=== PATIENT | male | born 1970 | race Two or more races ===

== ENCOUNTER 2023-03-10 18:42 | Inpatient (IN) | payer OTHER ==
[~2023-03-10] VITALS: Ht 172.7 cm; Wt 63.5 kg
[2023-03-11] MEDS ORDERED: NEOMYCIN-BACITRACIN-POLYM UNITDOSE PKG TOP OINT TOP ONE (00:15)
[2023-03-11] MEDS ORDERED: cefTRIAXone SOD 1,000 MG VL IM ONE (00:15)
[2023-03-11] MEDS ORDERED: HYDROcodone-ACET 5/325MG TAB PO ONE (00:15)
[2023-03-11] MEDS ORDERED: TETANUS-DIPTH-ACEL PERTUSSIS 0.5ML SYR Tdap IM ONE (00:15)
[2023-03-11] MEDS ORDERED: CEPH500C PO (00:17)
[2023-03-11] MEDS ORDERED: MUPI2CRE17 EX (00:17)
[2023-03-11] MEDS ORDERED: IBUP-1454 PO (00:17)
[2023-03-11 01:59] LABS: Basophils # (auto) 0.1 10 ^3/uL (0-0.2); Basophils % (auto) 0.7 % (0.0-2.0); Eosinophils # (auto) 0.1 10 ^3/uL (0-0.8); Eosinophils % (auto) 0.6 % (0.0-7.0); Hematocrit 36.2 % (41.0-53.0); Hemoglobin 12.6 g/dL (13.5-17.5); Lymphocytes # (auto) 3.2 10 ^3/uL (0.4-5.4); Mean Corpuscular Hemoglobin 29.2 pg (28.0-32.0); Mean Corpuscular Hgb Conc. 34.7 g/dL (32.0-36.0); Monocytes # (auto) 1.2 10 ^3/uL (0-1.3); Monocytes % (auto) 9.5 % (0.0-12.0); Neutrophils # (auto) 8.2 10 ^3/uL (1.6-8.6); Neutrophils % (auto) 64.2 % (37.0-80.0); White Blood Cell 12.8 10^3/uL (4.4-10.8)
[2023-03-11] MEDS ORDERED: ONDANSETRON HCL 4 MG/2 ML VIAL IV PRN (02:00)
[2023-03-11 02:18] LABS: Alanine Aminotransferase 26 U/L (7-40); Albumin 4.6 g/dL (3.2-4.8); Alkaline Phosphatase 75 U/L (46-116); Anion Gap 7 (5-15); Aspartate Aminotransferase 15 U/L (13-40); BUN/Creatinine Ratio 14.5 (10.0-20.0); Bilirubin, Total 0.4 mg/dL (0.2-1.0); Blood Urea Nitrogen 17 mg/dL (9-23); Calcium 9.7 mg/dL (8.7-10.4); Carbon Dioxide 24 mmol/L (20-30); Chloride 103 mmol/L (98-107); Glucose 105 mg/dL (74-106); Potassium 4.3 mmol/L (3.5-5.1); Sodium 134 mmol/L (136-145); Total Protein 7.6 g/dL (5.7-8.2)
[2023-03-11 02:20] LABS: INR 1.06 (0.9-1.15); Partial Thromboplastin Time 27.7 SEC (24.5-34.5); Prothrombin Time 11.1 sec (9.3-11.8)
[2023-03-11 03:05] VITALS: PULSE 70; RESP 13; O2SAT 97
[2023-03-11] MEDS: HYDROcodone-ACET 5/325MG TAB PO PRN ×3 (04:15→19:47)
[2023-03-11 07:30] VITALS: O2SAT 97
[2023-03-11] MEDS: PANTOPRAZOLE 40 MG/10 ML VIAL INJ IV SCH ×2 (10:27→22:22)
[2023-03-11] MEDS: ENOXAPARIN SOD 40 MG/0.4 ML SYRINGE SC SCH (10:27)
[2023-03-11 10:32] VITALS: BP 113/72; PULSE 85; RESP 16; TEMP 98.6; O2SAT 96
[2023-03-11 13:00] VITALS: BP 120/77; PULSE 102; RESP 14; TEMP 99.5; O2SAT 95
[2023-03-11 17:00] VITALS: BP 123/72; PULSE 86; RESP 14; TEMP 98.1; O2SAT 98
[2023-03-11 22:00] VITALS: BP 111/69; PULSE 71; RESP 18; TEMP 98.9; O2SAT 97
[2023-03-12] VITALS (12 sets, daily range): BP systolic 106–119; BP diastolic 67–72; PULSE 73–88; RESP 17–20; TEMP 98.3–98.8; O2SAT 92–100
[2023-03-12] MEDS: HYDROmorphone HCL 2 MG/ML VL/or syr IV PRN ×3 (05:10→20:30)
[2023-03-12] MEDS: cefTRIAXone 1GM/50ML D5W 50 ML IV SCH (10:32)
[2023-03-12] MEDS: PANTOPRAZOLE 40 MG/10 ML VIAL INJ IV SCH ×2 (10:32→21:44)
[2023-03-12] MEDS: ENOXAPARIN SOD 40 MG/0.4 ML SYRINGE SC SCH (10:33)
[2023-03-12] MEDS: HYDROcodone-ACET 5/325MG TAB PO PRN (10:33)
[2023-03-12] MEDS: ALBUTEROL SULF 2.5 MG/0.5ML(0.5%) NEB SOLN NEB SCH ×2 (14:03→18:36)
[2023-03-13] VITALS (13 sets, daily range): BP systolic 119–121; BP diastolic 67–78; PULSE 72–97; RESP 17–22; TEMP 98.1–98.9; O2SAT 94–100
[2023-03-13] MEDS: HYDROmorphone HCL 2 MG/ML VL/or syr IV PRN ×2 (05:27→21:18)
[2023-03-13] MEDS: ALBUTEROL SULF 2.5 MG/0.5ML(0.5%) NEB SOLN NEB SCH ×3 (07:19→22:43)
[2023-03-13] MEDS: cefTRIAXone 1GM/50ML D5W 50 ML IV SCH (09:40)
[2023-03-13] MEDS: PANTOPRAZOLE 40 MG/10 ML VIAL INJ IV SCH ×2 (09:41→21:18)
[2023-03-13] MEDS: ENOXAPARIN SOD 40 MG/0.4 ML SYRINGE SC SCH (09:41)
[2023-03-13] MEDS: HYDROcodone-ACET 5/325MG TAB PO PRN ×2 (12:04→17:58)
[2023-03-14] VITALS (14 sets, daily range): BP systolic 102–127; BP diastolic 63–84; PULSE 68–97; RESP 17–21; TEMP 98–98.9; O2SAT 95–99
[2023-03-14] MEDS: ALBUTEROL SULF 2.5 MG/0.5ML(0.5%) NEB SOLN NEB SCH ×3 (06:58→21:17)
[2023-03-14] MEDS: ENOXAPARIN SOD 40 MG/0.4 ML SYRINGE SC SCH (09:22)
[2023-03-14] MEDS: cefTRIAXone 1GM/50ML D5W 50 ML IV SCH (09:22)
[2023-03-14] MEDS: PANTOPRAZOLE 40 MG/10 ML VIAL INJ IV SCH ×2 (09:22→21:29)
[2023-03-14] MEDS: HYDROmorphone HCL 2 MG/ML VL/or syr IV PRN (09:37)
[2023-03-14] MEDS: HYDROcodone-ACET 5/325MG TAB PO PRN ×2 (16:29→21:30)
[2023-03-14] MEDS: AMOXICILLIN/CLAVUL 875 MG TAB PO SCH (22:04)
[2023-03-15] VITALS (13 sets, daily range): BP systolic 112–119; BP diastolic 69–76; PULSE 67–106; RESP 16–20; TEMP 36.8; O2SAT 95–100
[2023-03-15] MEDS: HYDROcodone-ACET 5/325MG TAB PO PRN ×2 (04:26→08:30)
[2023-03-15] MEDS: ALBUTEROL SULF 2.5 MG/0.5ML(0.5%) NEB SOLN NEB SCH ×3 (07:32→19:30)
[2023-03-15] MEDS: PANTOPRAZOLE 40 MG/10 ML VIAL INJ IV SCH (10:30)
[2023-03-15] MEDS: AMOXICILLIN/CLAVUL 875 MG TAB PO SCH (10:30)
[2023-03-15] MEDS: ENOXAPARIN SOD 40 MG/0.4 ML SYRINGE SC SCH (10:30)
== END 2023-03-15 18:33 | DRG 89 ==
LOC: EDBD 18:42 → EEVIPCON 18:42 → ER 18:42 → OVERFLOW 03-11 02:11 → WEST WING 03-11 09:12
PROVIDERS: ADMIT Specialist; ATTEND Internal Medicine
DX: S06.0XAA Concussion with loss of consciousness status unknown, initial encounter (principal); S32.029A Unspecified fracture of second lumbar vertebra, initial encounter for closed fracture; S01.81XA Laceration without foreign body of other part of head, initial encounter; J47.9 Bronchiectasis, uncomplicated; S30.1XXA Contusion of abdominal wall, initial encounter; S20.211A Contusion of right front wall of thorax, initial encounter; R91.1 Solitary pulmonary nodule; S50.311A Abrasion of right elbow, initial encounter; Y04.1XXA Assault by human bite, initial encounter; Y93.89 Activity, other specified; Y92.89 Other specified places as the place of occurrence of the external cause; Y99.8 Other external cause status
CPT/HCPCS: 36415; 70450; 70486; 71045; 71250; 72125; 74176; 80053; 85025; 85610; 85730; 90715; 94640; C9113; G0378; J0696; J2405